=== PATIENT | male | born 2000 | race American Indian/Alaskan Native ===

== ENCOUNTER 2019-12-31 20:26 | Emergency (ER) | payer SELFPAY ==
[2019-12-31 23:31] LABS: Basophils % (Auto) 0.6 % (0.0-1.8); Eosinophils % (Auto) 0.4 % (0.0-4.3); Hemoglobin 15.6 gm/dl (11.8-15.2); Lymphocytes % (Auto) 27.4 % (13.4-35.0); Mean Corpuscular HGB Conc 33 % (32-34); Mean Corpuscular Volume 83 fl (84-94); Monocytes # (Auto) 0.7 K/mm3 (0.0-0.8); Monocytes % (Auto) 9.8 % (0.0-7.3); Platelet Count 239 K/mm3 (140-440); Red Blood Count 5.65 M/mm3 (3.65-5.03); Red Cell Distribution Width 14.5 % (13.2-15.2)
[2019-12-31 23:41] LABS: Alanine Aminotransferase 13 units/L (7-56); BUN/Creatinine Ratio 10; Blood Urea Nitrogen 9 mg/dL (9-20); Calcium 9.3 mg/dL (8.4-10.2); Hemolysis Index 22
--- NOTE | 2020-01-01 00:10 | Emergency Department Report ---
ED Abdominal Pain HPI - General Chief Complaint: Abdominal Pain Stated Complaint: ABD PAIN Time Seen by Provider: 01/01/20 00:04 Source: patient Mode of arrival: Ambulatory Limitations: No Limitations - History of Present Illness Initial Comments: 19-year-old -[place] male presents to the emergency room complaining of abdominal pain around his navel 7 out of 10 since this morning. Patient reports nausea and vomiting this morning. He reports he vomited 2 times today. He denies any fever, chills no urinary urgency or frequency or dysuria. Patient denies any penile discharge testicular pain. Patient denies smoking cigarettes or smoking marijuana. MD Complaint: abdominal pain -: This morning Location: periumbilical Radiation: none Migration to: no migration Severity scale (0 -10): 6 Quality: cramping Improves With: nothing Worsens With: nothing Associated Symptoms: nausea (Resolved), vomiting (Resolved). denies: diarrhea, fever, chills, constipation, dysuria, hematemesis, hematochezia - Related Data Previous Rx's Medication Instructions Recorded Last Taken Type Hyoscyamine Subl [Levsin Sl 0.125 0.125 mg SL Q6HR PRN #12 tablet 01/01/20 Unknown Rx TAB] Allergies Allergy/AdvReac Type Severity Reaction Status Date / Time No Known Allergies Allergy Unverified 12/31/19 21:46 ED Review of Systems ROS: Stated complaint: ABD PAIN Other details as noted in HPI Comment: All other systems reviewed and negative ED Past Medical Hx - Past Medical History Previous Medical History?: No - Surgical History Past Surgical History?: No - Social History Smoking Status: Never Smoker - Medications Home Medications: Home Medications Medication Instructions Recorded Confirmed Last Taken Type Hyoscyamine Subl [Levsin Sl 0.125 0.125 mg SL Q6HR PRN #12 tablet 01/01/20 Unknown Rx TAB] ED Physical Exam - General Limitations: No Limitations General appearance: alert, in no apparent distress - Head Head exam: Present: atraumatic, normocephalic - Eye Eye exam: Present: normal appearance - ENT ENT exam: Present: mucous membranes moist - Neck Neck exam: Present: normal inspection - Respiratory Respiratory exam: Present: normal lung sounds bilaterally - Cardiovascular Cardiovascular Exam: Present: regular rate - GI/Abdominal GI/Abdominal exam: Present: soft, tenderness (Malika-umbilicus), normal bowel sounds. Absent: distended - Extremities Exam Extremities exam: Present: normal inspection - Back Exam Back exam: Present: normal inspection - Neurological Exam Neurological exam: Present: alert, oriented X3 - Psychiatric Psychiatric exam: Present: normal affect, normal mood - Skin Skin exam: Present: warm, dry, intact, normal color. Absent: rash ED Course Vital Signs 12/31/19 21:45 Temperature 98.2 F Pulse Rate 70 Respiratory 16 Rate Blood Pressure 113/51 O2 Sat by Pulse 96 Oximetry ED Medical Decision Making - Lab Data Result diagrams: 12/31/19 22:03 12/31/19 22:03 Laboratory Tests 12/31/19 12/31/19 22:03 22:03 WBC 7.3 RBC 5.65 H Hgb 15.6 H Hct 47.0 H MCV 83 L MCH 28 MCHC 33 RDW 14.5 Plt Count 239 Lymph % (Auto) 27.4 [place] % (Auto) 9.8 H Eos % (Auto) 0.4 Baso % (Auto) 0.6 Lymph # 2.0 [place] # 0.7 Eos # 0.0 Baso # 0.0 Seg Neutrophils % 61.8 Seg Neutrophils # 4.5 Sodium 140 Potassium 4.3 Chloride 103.2 Carbon Dioxide 23 Anion Gap 18 BUN 9 Creatinine 0.9 Estimated GFR > 60 BUN/Creatinine Ratio 10 Glucose 80 Calcium 9.3 Total Bilirubin 0.50 AST 13 ALT 13 Alkaline Phosphatase 57 Total Protein 7.5 Albumin 4.0 Albumin/Globulin Ratio 1.1 Lipase 20 - Radiology Data Radiology results: report reviewed Ordering Physician: BEVERLY CAMILO Date of Service: 01/01/20 Procedure(s): CT abdomen pelvis w con Accession Number(s): [id number] cc: BEVERLY CAMILO CT abdomen pelvis w con INDICATION: Malika-umbilicus pain and tenderness. TECHNIQUE: All CT scans at this location are performed using the following dose modulation technique: Automated exposure control. CONTRAST: Omnipaque 300, 100 cc IV injection. COMPARISON: None available. CT ABDOMEN: The parenchymal organs are unremarkable in appearance. Negative for abdominal mass, fluid or inflammation. The bowel is not dilated or thickened. CT PELVIS: An isolated segment of small bowel deep within the right pelvis is dilated containing liquid stool and has some mild adjacent fluid. No wall thickening. IMPRESSION: Unusual dilated segment of distal small bowel deep within the pelvis with mild adjacent inflammation. A gastroenteritis-type process is the most likely etiology. An unusual presentation of closed loop obstruction is thought to be less likely. Signer Name: Yunior Daniels MD Signed: 01/01/2020 1:21 AM Workstation Name: [id number] Transcribed By: ES Dictated By: Yunior Daniels MD Electronically Authenticated By: Yunior Daniels MD Signed Date/Time: 01/01/20120 DD/ 2 TD/TT: - Medical Decision Making 19-year-old -[place] male presents to the emergency room complaining of abdominal pain around his navel 7 out of 10 since this morning. Patient reports nausea and vomiting this morning. He reports he vomited 2 times today. He denies any fever, chills no urinary urgency or frequency or dysuria. Patient denies any penile discharge testicular pain. Patient denies smoking cigarettes or smoking marijuana. CT is negative for obstruction it shows shows that he has gastroenteritis. Patient was given Levsin reports he feels somewhat better. Patient be discharged in stable condition with prescription for Levsin and to follow-up with his primary care provider. Critical care attestation.: If time is entered above; I have spent that time in minutes in the direct care of this critically ill patient, excluding procedure time. ED Disposition Clinical Impression: Abdominal pain, Gastroenteritis Disposition: DC-01 TO HOME OR SELFCARE Is pt being admited?: No Does the pt Need Aspirin: No Condition: Stable Instructions: Acute Abdominal Pain (ED) Additional Instructions: CT scan shows that you have gastroenteritis. I recommend a brat diet consisting of bananas rice applesauce and toast. Take the Levsin as needed for abdominal cramping. Increase your water intake and follow-up with your primary care provider. Prescriptions: Hyoscyamine Subl [Levsin Sl 0.125 TAB] 0.125 mg SL Q6HR PRN #12 tablet PRN Reason: abd cramping Referrals: PRIMARY CARE, [Primary Care Provider] - 3-5 Days [facility] [Provider Group] - 3-5 Days Forms: Work/School Release Form(ED)
[2020-01-01 00:32] LABS: Bilirubin,Urine NEG (Negative); Blood,Urine NEG (Negative); Color,Urine Yellow (Yellow); Mucus,Urine 3+ /HPF
--- NOTE | 2020-01-01 01:25 | Cat Scan Report ---
CT abdomen pelvis w con INDICATION: Malika-umbilicus pain and tenderness. TECHNIQUE: All CT scans at this location are performed using the following dose modulation technique: Automated exposure control. CONTRAST: Omnipaque 300, 100 cc IV injection. COMPARISON: None available. CT ABDOMEN: The parenchymal organs are unremarkable in appearance. Negative for abdominal mass, fluid or inflammation. The bowel is not dilated or thickened. CT PELVIS: An isolated segment of small bowel deep within the right pelvis is dilated containing liqu id stool and has some mild adjacent fluid. No wall thickening. IMPRESSION: Unusual dilated segment of distal small bowel deep within the pelvis with mild adjacent i nflammation. A gastroenteritis-type process is the most likely etiology. An unusual presentation of c losed loop obstruction is thought to be less likely. Signer Name: Yunior Daniels MD Signed: 01/01/2020 1:21 AM Workstation Name: [id number]
[2020-01-01] MEDS ORDERED: HYOSCYAMINE SUBL 0.125 MG TAB SL ONE (01:54)
[2020-01-01 03:33] VITALS: BP 116/76
== END 2020-01-01 03:17 | disposition home or self-care (01) ==
LOC: ED 20:26
DX: K21.9 Gastro-esophageal reflux disease without esophagitis (principal)
CPT/HCPCS: 36415; 74177; 80053; 81001; 83690; 85025; 99284; Q9967